=== PATIENT | male | born 1995 | race Two or more races ===

== ENCOUNTER 2024-10-06 22:00 | Inpatient (IN) | payer OTHER ==
[~2024-10-06] VITALS: Ht 177.8 cm; Wt 74.8 kg
[2024-10-06 22:29] LABS: ABG BASE EXCESS -11.6 mmol/L (-2.0-3.0); ABG HCO3 11.9 mmol/L (21.0-28.0); ABG PH 7.352 (7.350-7.450); ABG PO2 153.7 mmHg (83.0-108.0); ABG SITE LEFT BRACHIAL; ABG TOTAL HEMOGLOBIN 12.9 G/dL (13.5-17.5); AaDO2 98.9 mmHg; COHb 0.3 % (0.5-1.5); MetHb 0.2 % (0.0-1.5); O2Hb 98.3 % (94.0-98.0)
[2024-10-06] MEDS ORDERED: CEFEPIME HCL 1 G VIAL ONE (22:40)
[2024-10-06] MEDS: CEFEPIME HCL 1 G in IV DEXTROSE 5% 50 ML IV ONE (22:43)
[2024-10-06 22:46] LABS: BASOPHILS % (AUTO) 0.1 % (0.0-2.0); HEMATOCRIT 36.4 % (36.7-47.1); HEMOGLOBIN 11.9 g/dL (12.5-16.3); LYMPHOCYTES # (AUTO) 0.5 K/uL (0.8-4.8); LYMPHOCYTES % (AUTO) 3.2 % (20.5-51.5); MEAN CORPUSCULAR HEMOGLOBIN 29.7 uug (23.8-33.4); MEAN CORPUSCULAR HGB CONC 33 g/dL (32.5-36.3); MEAN CORPUSCULAR VOLUME 90.8 fL (73.0-96.2); MONOCYTES # (AUTO) 0.8 K/uL (0.1-1.30); MONOCYTES % (AUTO) 5.2 % (0.0-11.0); NEUTROPHILS # (AUTO) 13.8 K/uL (1.8-8.9); NEUTROPHILS % (AUTO) 91.5 % (38.5-71.5); PLATELET COUNT (AUTO) 282 K/uL (152-348); RED CELL DISTRIBUTION WIDTH 15.6 % (12.1-16.2); WHITE BLOOD COUNT (AUTO) 15.1 K/uL (3.6-10.2)
[2024-10-06 22:48] LABS: DIFFERENTIAL COMMENT 1
[2024-10-06 22:52] LABS: CALCIUM 8.7 mg/dL (8.5-10.1); CARBON DIOXIDE 19 mmol/L (21-32); CHLORIDE 97 mmol/L (98-107); CREATININE 1.4 mg/dL (0.6-1.3); GLUCOSE 109 mg/dL (74-106); SODIUM SERUM 134 mmol/L (136-145); UREA NITROGEN, BLOOD 31 mg/dL (7-18)
[2024-10-06 23:04] LABS: LACTIC ACID 6.5 mmol/L (0.4-2.0)
[2024-10-06 23:05] LABS: ALANINE AMINOTRANSFERASE 28 U/L (16-63); ALBUMIN 2.2 g/dL (3.4-5.0); ALKALINE PHOSPHATASE 102 U/L (50-136); ASPARTATE AMINOTRANSFERASE 44 U/L (15-37); BILIRUBIN,DIRECT 0.3 mg/dL (0.0-0.2); BILIRUBIN,TOTAL 0.8 mg/dL (0.2-1.0); NT-PRO BNP 152 pg/mL (0-125); TOTAL PROTEIN, SERUM 9.2 g/dL (6.4-8.2)
[2024-10-06] MEDS: IV NORMAL SALINE 1000 ML BAG IV ONE (23:50)
[2024-10-07] VITALS (9 sets, daily range): O2SAT 75–99
[2024-10-07] MEDS ORDERED: IV NORMAL SALINE 250 ML IV ONE (01:16)
[2024-10-07] MEDS ORDERED: IOHEXOL 350 100 ML INFUS..BTL ONE (01:16)
[2024-10-07] MEDS ORDERED: SWABABLE VALVE TRANSFER SET EA MC ONE (01:16)
[2024-10-07 02:46] LABS: *AMPHETAMINE, URINE NEGATIVE (NEGATIVE); *BARBITURATE, URINE NEGATIVE (NEGATIVE); *BENZODIAZEPINE, URINE NEGATIVE (NEGATIVE); *CANNABINOID, URINE NEGATIVE (NEGATIVE); *COCCAINE, URINE NEGATIVE (NEGATIVE); *OPIATE, URINE NEGATIVE (NEGATIVE); *PHENCYCLIDINE SCREEN,URINE NEGATIVE (NEGATIVE); FENTANYL, URINE NEGATIVE (NEGATIVE)
[2024-10-07] MEDS ORDERED: ONDANSETRON 4 MG/2 ML VIAL IV PRN (05:15)
[2024-10-07] MEDS ORDERED: REMEDY ESSENTIAL ZINC PASTE 113 GM TP PRN (05:15)
[2024-10-07] MEDS: IV NS 1000 ML 1,000 ML IV ONE (05:15)
[2024-10-07] MEDS ORDERED: MAGNESIUM HYDROXIDE 30 ML LIQUID UDC PO PRN (05:15)
[2024-10-07] MEDS: SODIUM BICARBONATE 8.4% 50 MEQ/50 ML DISP.SYRIN IV ONE (05:30)
[2024-10-07 05:39] LABS: ABG BASE EXCESS -6.1 mmol/L (-2.0-3.0); ABG PCO2 35.6 mmHg (35.0-48.0); ABG PH 7.345 (7.350-7.450); ABG PO2 135.1 mmHg (83.0-108.0); ABG SITE LEFT BRACHIAL; ABG TOTAL HEMOGLOBIN 9.4 G/dL (13.5-17.5); AaDO2 98.6 mmHg; COHb 0.3 % (0.5-1.5); MetHb 0.5 % (0.0-1.5); O2Hb 97.1 % (94.0-98.0)
[2024-10-07] MEDS ORDERED: SULFAMETH/TRIMETH 800/160 MG TABLET ONE (06:13)
[2024-10-07] MEDS: SULFAMETH/TRIMETH 800/160 MG TABLET PO ONE (06:14)
[2024-10-07] MEDS: HYDROCORTISONE SOD SUCCINATE 100 MG/2 ML VIAL IV SCH (09:15)
[2024-10-07] MEDS ORDERED: HYDROCORTISONE SOD SUCCINATE 100 MG/2 ML VIAL IV ONE ×3 (09:55→21:17)
[2024-10-07] MEDS ORDERED: SODIUM BICARBONATE 8.4% 50 MEQ/50 ML DISP.SYRIN IV ONE (09:55)
[2024-10-07] MEDS: VANCOMYCIN IV 1,000 MG in IV DEXTROSE 5% 250 ML IV SCH (10:34)
[2024-10-07] MEDS: CEFEPIME HCL 1 G in IV DEXTROSE 5% 50 ML IV SCH (14:00)
[2024-10-07] MEDS: METRONIDAZOLE 500 MG/NS 100ML 500 MG in PREMIXED 1 EACH IV SCH (14:21)
[2024-10-07] MEDS ORDERED: CEFEPIME HCL 1 G VIAL ONE ×2 (15:27→21:17)
[2024-10-07] MEDS: FLUCONAZOLE 400MG /NS 200ML IV 400 MG in PREMIXED 1 EACH IV SCH (16:00)
[2024-10-07 17:58] LABS: HIV-1 p24 ANTIGEN NON REACTIVE (NONREACTIVE); HIV-1/2 ANTIBODY REACTIVE (NONREACTIVE)
[2024-10-07] MEDS: ATOVAQUONE 750 MG/5 ML SUSPENSION UDC PO SCH (21:00)
[2024-10-08] VITALS (10 sets, daily range): O2SAT 94–98
[2024-10-08] MEDS: CEFEPIME HCL 1 G in IV DEXTROSE 5% 50 ML IV SCH (02:20)
[2024-10-08 08:06] LABS: BASOPHILS % (AUTO) 0.2 % (0.0-2.0); HEMATOCRIT 26.7 % (36.7-47.1); HEMOGLOBIN 9.1 g/dL (12.5-16.3); LYMPHOCYTES # (AUTO) 0.2 K/uL (0.8-4.8); LYMPHOCYTES % (AUTO) 2.3 % (20.5-51.5); MEAN CORPUSCULAR HEMOGLOBIN 30.3 uug (23.8-33.4); MEAN CORPUSCULAR HGB CONC 34 g/dL (32.5-36.3); MEAN CORPUSCULAR VOLUME 88.4 fL (73.0-96.2); MONOCYTES # (AUTO) 0.3 K/uL (0.1-1.30); MONOCYTES % (AUTO) 3.7 % (0.0-11.0); NEUTROPHILS # (AUTO) 8.6 K/uL (1.8-8.9); NEUTROPHILS % (AUTO) 93.8 % (38.5-71.5); PLATELET COUNT (AUTO) 227 K/uL (152-348); RED BLOOD CELL COUNT(AUTO) 3.02 MIL/uL (4.06-5.63); RED CELL DISTRIBUTION WIDTH 15.4 % (12.1-16.2); WHITE BLOOD COUNT (AUTO) 9.1 K/uL (3.6-10.2)
[2024-10-08 08:14] LABS: DIFFERENTIAL COMMENT 1
[2024-10-08 08:32] LABS: ALANINE AMINOTRANSFERASE 24 U/L (16-63); ALBUMIN 1.6 g/dL (3.4-5.0); ALKALINE PHOSPHATASE 74 U/L (50-136); ASPARTATE AMINOTRANSFERASE 25 U/L (15-37); BILIRUBIN,TOTAL 0.4 mg/dL (0.2-1.0); CALCIUM 7.4 mg/dL (8.5-10.1); CARBON DIOXIDE 24 mmol/L (21-32); CHLORIDE 106 mmol/L (98-107); CREATININE 0.7 mg/dL (0.6-1.3); GLUCOSE 113 mg/dL (74-106); LACTATE DEHYDROGENASE 609 U/L (85-227); MAGNESIUM 2.5 mg/dL (1.8-2.4); PHOSPHOROUS 3.8 mg/dL (2.5-4.9); POTASSIUM 4.4 mmol/L (3.5-5.1); SODIUM SERUM 137 mmol/L (136-145); TOTAL PROTEIN, SERUM 6.6 g/dL (6.4-8.2); UREA NITROGEN, BLOOD 19 mg/dL (7-18)
[2024-10-08] MEDS: METRONIDAZOLE 500 MG/NS 100ML 500 MG in PREMIXED 1 EACH IV SCH (09:07)
[2024-10-08] MEDS ORDERED: METRONIDAZOLE 500 MG/NS 100ML 500 MG in PREMIXED 1 EACH IV SCH (10:00)
[2024-10-08] MEDS ORDERED: HYDROCORTISONE SOD SUCCINATE 100 MG/2 ML VIAL IV ONE ×2 (10:27→17:45)
[2024-10-08] MEDS: ATOVAQUONE 750 MG/5 ML SUSPENSION UDC PO SCH (10:52)
[2024-10-08] MEDS: HYDROCORTISONE SOD SUCCINATE 100 MG/2 ML VIAL IV SCH (10:52)
[2024-10-08] MEDS: VANCOMYCIN IV 1,250 MG in IV DEXTROSE 5% 250 ML IV SCH (10:53)
[2024-10-08] MEDS ORDERED: ATOVAQUONE 750 MG/5 ML SUSPENSION UDC PO SCH (14:00)
[2024-10-08] MEDS ORDERED: VANCOMYCIN IV 1,000 MG in IV DEXTROSE 5% 250 ML IV SCH (14:00)
[2024-10-08] MEDS: IV NS 1000 ML 1,000 ML IV PRN (17:17)
[2024-10-08] MEDS ORDERED: SULFAMETH/TRIMETH 800/160 MG TABLET ONE (17:45)
[2024-10-08] MEDS: SULFAMETH/TRIMETH 800/160 MG TABLET PO SCH (17:48)
[2024-10-09] VITALS (14 sets, daily range): BP systolic 109–124; BP diastolic 68–75; TEMP 97.2–98; O2SAT 90–97
[2024-10-09] MEDS ORDERED: SULFAMETH/TRIMETH 800/160 MG TABLET ONE (00:20)
[2024-10-09] MEDS ORDERED: CEFEPIME HCL 1 G VIAL ONE (04:05)
[2024-10-09] MEDS ORDERED: HYDROCORTISONE SOD SUCCINATE 100 MG/2 ML VIAL IV ONE (04:05)
[2024-10-09 09:03] LABS: BASOPHILS % (AUTO) 0.1 % (0.0-2.0); HEMATOCRIT 28.6 % (36.7-47.1); HEMOGLOBIN 9.4 g/dL (12.5-16.3); LYMPHOCYTES # (AUTO) 0.3 K/uL (0.8-4.8); LYMPHOCYTES % (AUTO) 2.4 % (20.5-51.5); MEAN CORPUSCULAR HEMOGLOBIN 29.4 uug (23.8-33.4); MEAN CORPUSCULAR HGB CONC 33 g/dL (32.5-36.3); MEAN CORPUSCULAR VOLUME 89.3 fL (73.0-96.2); MONOCYTES # (AUTO) 0.6 K/uL (0.1-1.30); NEUTROPHILS # (AUTO) 10.4 K/uL (1.8-8.9); NEUTROPHILS % (AUTO) 92.5 % (38.5-71.5); PLATELET COUNT (AUTO) 278 K/uL (152-348); RED CELL DISTRIBUTION WIDTH 15.4 % (12.1-16.2); WHITE BLOOD COUNT (AUTO) 11.2 K/uL (3.6-10.2)
[2024-10-09 09:05] LABS: DIFFERENTIAL COMMENT 1
[2024-10-09 09:31] LABS: CALCIUM 7.6 mg/dL (8.5-10.1); CREATININE 0.8 mg/dL (0.6-1.3); MAGNESIUM 2.3 mg/dL (1.8-2.4); PHOSPHOROUS 4.1 mg/dL (2.5-4.9); POTASSIUM 2.9 mmol/L (3.5-5.1)
[2024-10-09] MEDS: POTASSIUM CHLORIDE 50 ML IV SCH (14:02)
[2024-10-09] MEDS: VANCOMYCIN IV 1,250 MG in IV DEXTROSE 5% 250 ML IV SCH (16:39)
[2024-10-09] MEDS: CEFEPIME HCL 1 G in IV DEXTROSE 5% 50 ML IV SCH (21:23)
[2024-10-10] VITALS (12 sets, daily range): BP systolic 112–127; BP diastolic 71–82; TEMP 97.7–98.4; O2SAT 92–98
[2024-10-10] MEDS ORDERED: SULFAMETH/TRIMETH 800/160 MG TABLET ONE (06:20)
[2024-10-10 07:36] LABS: BASOPHILS % (AUTO) 0.2 % (0.0-2.0); HEMATOCRIT 26.7 % (36.7-47.1); LYMPHOCYTES # (AUTO) 0.2 K/uL (0.8-4.8); LYMPHOCYTES % (AUTO) 1.8 % (20.5-51.5); MEAN CORPUSCULAR HGB CONC 34 g/dL (32.5-36.3); MEAN CORPUSCULAR VOLUME 88.9 fL (73.0-96.2); MONOCYTES # (AUTO) 0.9 K/uL (0.1-1.30); MONOCYTES % (AUTO) 7.7 % (0.0-11.0); NEUTROPHILS # (AUTO) 10.4 K/uL (1.8-8.9); NEUTROPHILS % (AUTO) 90.3 % (38.5-71.5); PLATELET COUNT (AUTO) 266 K/uL (152-348); RED CELL DISTRIBUTION WIDTH 15.5 % (12.1-16.2); WHITE BLOOD COUNT (AUTO) 11.5 K/uL (3.6-10.2)
[2024-10-10 07:49] LABS: DIFFERENTIAL COMMENT 1
[2024-10-10 09:02] LABS: ALBUMIN 1.9 g/dL (3.4-5.0); BILIRUBIN,DIRECT 0.1 mg/dL (0.0-0.2); BILIRUBIN,TOTAL 0.3 mg/dL (0.2-1.0); CALCIUM 7.6 mg/dL (8.5-10.1); CREATININE 0.8 mg/dL (0.6-1.3); MAGNESIUM 2.5 mg/dL (1.8-2.4); PHOSPHOROUS 3.6 mg/dL (2.5-4.9); POTASSIUM 3.2 mmol/L (3.5-5.1); TOTAL PROTEIN, SERUM 5.9 g/dL (6.4-8.2)
[2024-10-10] MEDS: POTASSIUM CHLORIDE 20 MEQ TAB.PRT.SR PO ONE (10:46)
[2024-10-11] VITALS (19 sets, daily range): BP systolic 113–124; BP diastolic 63–81; TEMP 97.6–98.7; O2SAT 93–97
[2024-10-11 07:29] LABS: BASOPHILS % (AUTO) 0.1 % (0.0-2.0); HEMATOCRIT 24.9 % (36.7-47.1); HEMOGLOBIN 8.5 g/dL (12.5-16.3); LYMPHOCYTES # (AUTO) 0.1 K/uL (0.8-4.8); LYMPHOCYTES % (AUTO) 1.4 % (20.5-51.5); MEAN CORPUSCULAR HEMOGLOBIN 30.4 uug (23.8-33.4); MEAN CORPUSCULAR HGB CONC 34 g/dL (32.5-36.3); MEAN CORPUSCULAR VOLUME 89.6 fL (73.0-96.2); MONOCYTES # (AUTO) 0.6 K/uL (0.1-1.30); MONOCYTES % (AUTO) 5.8 % (0.0-11.0); NEUTROPHILS # (AUTO) 9.9 K/uL (1.8-8.9); NEUTROPHILS % (AUTO) 92.7 % (38.5-71.5); PLATELET COUNT (AUTO) 253 K/uL (152-348); RED BLOOD CELL COUNT(AUTO) 2.78 MIL/uL (4.06-5.63); WHITE BLOOD COUNT (AUTO) 10.7 K/uL (3.6-10.2)
[2024-10-11 07:43] LABS: CALCIUM 7.2 mg/dL (8.5-10.1); CARBON DIOXIDE 17 mmol/L (21-32); CHLORIDE 111 mmol/L (98-107); CREATININE 0.7 mg/dL (0.6-1.3); GLUCOSE 109 mg/dL (74-106); MAGNESIUM 2.4 mg/dL (1.8-2.4); PHOSPHOROUS 3.6 mg/dL (2.5-4.9); POTASSIUM 3.1 mmol/L (3.5-5.1); SODIUM SERUM 141 mmol/L (136-145); UREA NITROGEN, BLOOD 17 mg/dL (7-18)
[2024-10-11 07:52] LABS: DIFFERENTIAL COMMENT 1
[2024-10-11] MEDS: POTASSIUM CHLORIDE 20 MEQ TAB.PRT.SR PO SCH (09:33)
[2024-10-11] MEDS: VANCOMYCIN IV 1,250 MG in IV DEXTROSE 5% 250 ML IV SCH (12:49)
[2024-10-11] MEDS: METRONIDAZOLE 500 MG TABLET PO SCH (13:52)
[2024-10-12] VITALS (29 sets, daily range): BP systolic 84–136; BP diastolic 48–88; TEMP 97.4–98.7; O2SAT 81–98
[2024-10-12] MEDS: IPRATROPIUM BROMIDE 0.5 MG/2.5 ML NEBU NEB PRN (03:16)
[2024-10-12] MEDS: ALBUTEROL SULFATE 2.5 MG/3 ML NEBU NEB PRN (03:16)
[2024-10-12 07:08] LABS: BASOPHILS % (AUTO) 0.1 % (0.0-2.0); HEMATOCRIT 25.4 % (36.7-47.1); HEMOGLOBIN 8.7 g/dL (12.5-16.3); LYMPHOCYTES # (AUTO) 0.2 K/uL (0.8-4.8); LYMPHOCYTES % (AUTO) 1.1 % (20.5-51.5); MEAN CORPUSCULAR HEMOGLOBIN 30.1 uug (23.8-33.4); MEAN CORPUSCULAR HGB CONC 34 g/dL (32.5-36.3); MEAN CORPUSCULAR VOLUME 88.4 fL (73.0-96.2); MONOCYTES # (AUTO) 0.9 K/uL (0.1-1.30); MONOCYTES % (AUTO) 6.2 % (0.0-11.0); NEUTROPHILS % (AUTO) 92.6 % (38.5-71.5); PLATELET COUNT (AUTO) 258 K/uL (152-348); RED BLOOD CELL COUNT(AUTO) 2.88 MIL/uL (4.06-5.63); RED CELL DISTRIBUTION WIDTH 15.9 % (12.1-16.2); WHITE BLOOD COUNT (AUTO) 14.1 K/uL (3.6-10.2)
[2024-10-12 07:25] LABS: CALCIUM 7.1 mg/dL (8.5-10.1); CARBON DIOXIDE 18 mmol/L (21-32); CHLORIDE 110 mmol/L (98-107); CREATININE 0.7 mg/dL (0.6-1.3); DIFFERENTIAL COMMENT 1; GLUCOSE 121 mg/dL (74-106); MAGNESIUM 2.1 mg/dL (1.8-2.4); PHOSPHOROUS 2.5 mg/dL (2.5-4.9); POTASSIUM 3.5 mmol/L (3.5-5.1); SODIUM SERUM 139 mmol/L (136-145); UREA NITROGEN, BLOOD 15 mg/dL (7-18)
[2024-10-12] MEDS: FLUCONAZOLE 200 MG TABLET PO SCH (09:00)
[2024-10-12] MEDS: FUROSEMIDE 40 MG/4 ML VIAL ONE (09:34)
[2024-10-12] MEDS: FUROSEMIDE 40 MG/4 ML VIAL IV ONE (09:58)
[2024-10-12] MEDS: PROPOFOL 100 ML IV PRN (10:54)
[2024-10-12] MEDS ORDERED: ETOMIDATE 20 MG/10 ML VIAL ONE (11:00)
[2024-10-12] MEDS ORDERED: CALCIUM CHLORIDE 1 GM/10 ML DISP.SYRIN IVP ONE (11:00)
[2024-10-12 12:11] LABS: ABG BASE EXCESS -11.4 mmol/L (-2.0-3.0); ABG HCO3 18.4 mmol/L (21.0-28.0); ABG PCO2 60.1 mmHg (35.0-48.0); ABG PH 7.104 (7.350-7.450); ABG PO2 140.5 mmHg (83.0-108.0); ABG SITE RIGHT RADIAL; ABG TOTAL HEMOGLOBIN 11.5 G/dL (13.5-17.5); AaDO2 97.8 mmHg; COHb 0.3 % (0.5-1.5); MetHb 0.5 % (0.0-1.5); VT, ABG 500 mL
[2024-10-12 12:53] LABS: ABG BASE EXCESS -11.7 mmol/L (-2.0-3.0); ABG HCO3 17.3 mmol/L (21.0-28.0); ABG PCO2 52.8 mmHg (35.0-48.0); ABG PH 7.134 (7.350-7.450); ABG SITE RIGHT RADIAL; ABG TOTAL HEMOGLOBIN 11.6 G/dL (13.5-17.5); AaDO2 95.3 mmHg; COHb 0.3 % (0.5-1.5); MetHb 0.5 % (0.0-1.5); VT, ABG 420 mL
[2024-10-12] MEDS ORDERED: ONDANSETRON 4 MG/2 ML VIAL IV PRN (16:00)
[2024-10-12] MEDS: ONDANSETRON 4 MG/2 ML VIAL IV PRN (16:54)
[2024-10-12] MEDS: predniSONE 20 MG TABLET PO SCH (17:10)
[2024-10-12 18:27] LABS: ABG BASE EXCESS -7.2 mmol/L (-2.0-3.0); ABG HCO3 19.3 mmol/L (21.0-28.0); ABG PCO2 42.9 mmHg (35.0-48.0); ABG PO2 94.4 mmHg (83.0-108.0); ABG SITE RIGHT RADIAL; ABG TOTAL HEMOGLOBIN 9.1 G/dL (13.5-17.5); AaDO2 96.3 mmHg; COHb 0.3 % (0.5-1.5); MetHb 0.6 % (0.0-1.5); O2Hb 94.9 % (94.0-98.0); VT, ABG 460 mL
[2024-10-12] MEDS: FENTANYL CITRATE/PF 1,000 MCG in IV NORMAL SALINE 80 ML IV PRN (18:53)
[2024-10-12] MEDS: MIDAZOLAM HCL 50 MG in IV NORMAL SALINE 40 ML IV PRN (18:54)
[2024-10-12 20:09] LABS: ADENOVIRUS Not Detected (Not Detected); CORONAVIRUS 229E Not Detected (Not Detected); CORONAVIRUS HKU1 Not Detected (Not Detected); CORONAVIRUS NL63 Not Detected (Not Detected); CORONAVIRUS OC43 Not Detected (Not Detected); NP BORDETELLA PERTUSIS Not Detected (Not Detected); NP CHLAMYDOPHILA PNEUMONIAE Not Detected (Not Detected); NP HUMAN METAPNEUMOVIRUS Not Detected (Not Detected); NP HUMAN RHINO/ENTERO VIRUS Not Detected (Not Detected); NP INFLUENZA A Not Detected (Not Detected); NP INFLUENZA A/H1 Not Detected (Not Detected); NP INFLUENZA A/H1-2009 Not Detected (Not Detected); NP INFLUENZA A/H3 Not Detected (Not Detected); NP INFLUENZA B Not Detected (Not Detected); NP MYCOPLASMA PNEUMONIAE Not Detected (Not Detected); NP PARAINFLUENZA 1 Not Detected (Not Detected); NP PARAINFLUENZA 2 Not Detected (Not Detected); NP PARAINFLUENZA 3 Not Detected (Not Detected); NP PARAINFLUENZA 4 Not Detected (Not Detected); NP RESPIRATORY SYNCYTIAL VIRUS Not Detected (Not Detected)
[2024-10-12] MEDS: ENOXAPARIN SODIUM 40 MG/0.4 ML DISP.SYRIN SQ SCH (21:11)
[2024-10-12] MEDS: NOREPINEPHRINE 8MG/NS 250ML 250 ML IV PRN (23:09)
[2024-10-13] VITALS (62 sets, daily range): BP systolic 74–129; BP diastolic 45–101; TEMP 98.1–101.5; O2SAT 87–99
[2024-10-13 05:24] LABS: BASOPHILS # (AUTO) 0.2 K/UL (0.0-0.2); BASOPHILS % (AUTO) 0.9 % (0.0-2.0); EOSINOPHILS # (AUTO) 0.1 K/uL (0.0-0.7); EOSINOPHILS % (AUTO) 0.8 % (0.0-7.0); HEMATOCRIT 24.5 % (36.7-47.1); LYMPHOCYTES # (AUTO) 0.1 K/uL (0.8-4.8); LYMPHOCYTES % (AUTO) 0.7 % (20.5-51.5); MEAN CORPUSCULAR HEMOGLOBIN 29.8 uug (23.8-33.4); MEAN CORPUSCULAR HGB CONC 33 g/dL (32.5-36.3); MEAN CORPUSCULAR VOLUME 91.3 fL (73.0-96.2); MONOCYTES # (AUTO) 0.5 K/uL (0.1-1.30); NEUTROPHILS # (AUTO) 15.5 K/uL (1.8-8.9); NEUTROPHILS % (AUTO) 94.6 % (38.5-71.5); PLATELET COUNT (AUTO) 213 K/uL (152-348); RED BLOOD CELL COUNT(AUTO) 2.69 MIL/uL (4.06-5.63); WHITE BLOOD COUNT (AUTO) 16.4 K/uL (3.6-10.2)
[2024-10-13 05:27] LABS: DIFFERENTIAL COMMENT 1
[2024-10-13 05:56] LABS: ALBUMIN 1.6 g/dL (3.4-5.0); BILIRUBIN,DIRECT 0.1 mg/dL (0.0-0.2); BILIRUBIN,TOTAL 0.5 mg/dL (0.2-1.0); CALCIUM 7.2 mg/dL (8.5-10.1); CREATININE 0.9 mg/dL (0.6-1.3); PHOSPHOROUS 2.5 mg/dL (2.5-4.9); POTASSIUM 3.8 mmol/L (3.5-5.1); TOTAL PROTEIN, SERUM 5.3 g/dL (6.4-8.2)
[2024-10-13 06:14] LABS: ABG BASE EXCESS -6.4 mmol/L (-2.0-3.0); ABG HCO3 19.4 mmol/L (21.0-28.0); ABG PH 7.304 (7.350-7.450); ABG PO2 104.4 mmHg (83.0-108.0); ABG SITE LEFT RADIAL; ABG TOTAL HEMOGLOBIN 8.7 G/dL (13.5-17.5); AaDO2 97.3 mmHg; COHb 0.3 % (0.5-1.5); MetHb 0.7 % (0.0-1.5); VT, ABG 460 mL
[2024-10-13] MEDS: PRECEDEX 400 MCG/100 ML BOTTLE 100 ML IV PRN (08:48)
[2024-10-13] MEDS ORDERED: MEROPENEM 500 MG in IV NORMAL SALINE 50 ML IV SCH (11:00)
[2024-10-13] MEDS ORDERED: VECURONIUM BROMIDE 10 MG VIAL IV PRN (13:45)
[2024-10-13] MEDS: MEROPENEM 0.5 G in IV NORMAL SALINE 50 ML IV SCH (14:00)
[2024-10-13] MEDS: ACETAMINOPHEN 325 MG TABLET PO PRN (15:30)
[2024-10-13 15:37] LABS: ABG BASE EXCESS -2.4 mmol/L (-2.0-3.0); ABG HCO3 24.1 mmol/L (21.0-28.0); ABG PCO2 50.6 mmHg (35.0-48.0); ABG PH 7.296 (7.350-7.450); ABG PO2 87.8 mmHg (83.0-108.0); ABG SITE RIGHT RADIAL; ABG TOTAL HEMOGLOBIN 8.5 G/dL (13.5-17.5); AaDO2 95.7 mmHg; COHb 0.1 % (0.5-1.5); MetHb 0.5 % (0.0-1.5); VT, ABG 460 mL
[2024-10-13] MEDS: VECURONIUM BROMIDE 50 MG in IV NORMAL SALINE 50 ML IV PRN (15:59)
[2024-10-13] MEDS: VORICONAZOLE 200 MG TABLET PO SCH (17:08)
[2024-10-14] VITALS (54 sets, daily range): BP systolic 76–142; BP diastolic 44–86; TEMP 97.1–100.8; O2SAT 90–100
[2024-10-14 05:10] LABS: BASOPHILS % (AUTO) 0.2 % (0.0-2.0); HEMOGLOBIN 8.4 g/dL (12.5-16.3); LYMPHOCYTES # (AUTO) 0.2 K/uL (0.8-4.8); MEAN CORPUSCULAR HEMOGLOBIN 29.9 uug (23.8-33.4); MEAN CORPUSCULAR HGB CONC 32 g/dL (32.5-36.3); MEAN CORPUSCULAR VOLUME 92.5 fL (73.0-96.2); MONOCYTES # (AUTO) 0.4 K/uL (0.1-1.30); MONOCYTES % (AUTO) 2.3 % (0.0-11.0); NEUTROPHILS # (AUTO) 15.2 K/uL (1.8-8.9); NEUTROPHILS % (AUTO) 96.5 % (38.5-71.5); PLATELET COUNT (AUTO) 199 K/uL (152-348); RED BLOOD CELL COUNT(AUTO) 2.81 MIL/uL (4.06-5.63); RED CELL DISTRIBUTION WIDTH 18.6 % (12.1-16.2); WHITE BLOOD COUNT (AUTO) 15.7 K/uL (3.6-10.2)
[2024-10-14 05:17] LABS: ABG BASE EXCESS -6.2 mmol/L (-2.0-3.0); ABG HCO3 20.5 mmol/L (21.0-28.0); ABG PCO2 46.3 mmHg (35.0-48.0); ABG PH 7.264 (7.350-7.450); ABG PO2 206.3 mmHg (83.0-108.0); ABG SITE LEFT RADIAL; ABG TOTAL HEMOGLOBIN 9.2 G/dL (13.5-17.5); AaDO2 99.2 mmHg; COHb 0.3 % (0.5-1.5); MetHb 0.4 % (0.0-1.5); O2Hb 98.5 % (94.0-98.0); VT, ABG 460 mL
[2024-10-14 05:20] LABS: DIFFERENTIAL COMMENT 1
[2024-10-14 05:27] LABS: CALCIUM 7.7 mg/dL (8.5-10.1); CREATININE 0.9 mg/dL (0.6-1.3); MAGNESIUM 2.2 mg/dL (1.8-2.4); POTASSIUM 4.7 mmol/L (3.5-5.1)
[2024-10-14] MEDS ORDERED: MINERAL OIL/PETROLAT OPHT OINT 3.5 GM TUBE EACHEYE SCH (09:15)
[2024-10-14] MEDS: IV LACTATED RINGERS SOLUTION 1,000 ML IV SCH (14:52)
[2024-10-14] MEDS: TRIMETHOPRI IV SCH (19:26)
[2024-10-14] MEDS: DEXTROSE IV SCH (19:26)
[2024-10-14] MEDS: SULFAMETHOXAZOL IV SCH (19:26)
[2024-10-15] VITALS (31 sets, daily range): BP systolic 84–111; BP diastolic 43–70; TEMP 97–98.2; O2SAT 90–95
[2024-10-15 05:49] LABS: NUCLEATED RED BLOOD CELLS 0.1 /100WBC
[2024-10-15 05:54] LABS: BASOPHILS % (AUTO) 0.2 % (0.0-2.0); HEMATOCRIT 20.5 % (36.7-47.1); HEMOGLOBIN 6.9 g/dL (12.5-16.3); LYMPHOCYTES # (AUTO) 0.1 K/uL (0.8-4.8); LYMPHOCYTES % (AUTO) 1.2 % (20.5-51.5); MEAN CORPUSCULAR HEMOGLOBIN 30.7 uug (23.8-33.4); MEAN CORPUSCULAR HGB CONC 34 g/dL (32.5-36.3); MEAN CORPUSCULAR VOLUME 91.4 fL (73.0-96.2); MONOCYTES % (AUTO) 2.4 % (0.0-11.0); NEUTROPHILS # (AUTO) 8.7 K/uL (1.8-8.9); NEUTROPHILS % (AUTO) 96.2 % (38.5-71.5); PLATELET COUNT (AUTO) 175 K/uL (152-348); RED BLOOD CELL COUNT(AUTO) 2.24 MIL/uL (4.06-5.63); RED CELL DISTRIBUTION WIDTH 18.8 % (12.1-16.2); WHITE BLOOD COUNT (AUTO) 9.1 K/uL (3.6-10.2)
[2024-10-15 05:55] LABS: DIFFERENTIAL COMMENT 1; MONOCYTES # (AUTO) 0.2 K/uL (0.1-1.30)
[2024-10-15 06:01] LABS: CALCIUM 7.5 mg/dL (8.5-10.1); CREATININE 0.8 mg/dL (0.6-1.3); MAGNESIUM 2.1 mg/dL (1.8-2.4); PHOSPHOROUS 1.8 mg/dL (2.5-4.9); POTASSIUM 4.2 mmol/L (3.5-5.1)
[2024-10-15 07:35] LABS: LYMPHOCYTES % (MANUAL) 2 % (20-40); MONOCYTES % (MANUAL) 2 % (2-10); NEUTROPHILS % (MANUAL) 96 % (42-75); PLATELET ESTIMATE ADEQUATE
[2024-10-15 07:36] LABS: LYMPHOCYTES % (MANUAL) 2 % (20-40); MONOCYTES % (MANUAL) 2 % (2-10); NEUTROPHILS % (MANUAL) 96 % (42-75); PLATELET ESTIMATE ADEQUATE
[2024-10-15 09:47] LABS: ABG BASE EXCESS -4.7 mmol/L (-2.0-3.0); ABG HCO3 21.7 mmol/L (21.0-28.0); ABG PCO2 46.6 mmHg (35.0-48.0); ABG PH 7.286 (7.350-7.450); ABG PO2 66.7 mmHg (83.0-108.0); ABG SITE RIGHT RADIAL; ABG TOTAL HEMOGLOBIN 8.9 G/dL (13.5-17.5); AaDO2 90.9 mmHg; COHb 0.3 % (0.5-1.5); MetHb 0.4 % (0.0-1.5); O2Hb 89.8 % (94.0-98.0); VT, ABG 460 mL
[2024-10-15] MEDS: SODIUM PHOSPHATE MM 15 MMOL in IV NORMAL SALINE 250 ML IV ONE (10:45)
[2024-10-15] MEDS ORDERED: VORICONAZOLE 200 MG TABLET PO SCH (17:00)
[2024-10-15] MEDS ORDERED: JEVITY 1.2 1000 ML LIQUID GT PRN (17:15)
[2024-10-15] MEDS: DEXTROSE 5% IV SCH (21:40)
[2024-10-15] MEDS: VORICONAZOLE IV SCH (21:40)
[2024-10-15] MEDS: JEVITY 1.2 1000 ML LIQUID GT PRN (21:41)
[2024-10-16] VITALS (48 sets, daily range): BP systolic 87–132; BP diastolic 46–84; TEMP 97.4–98.8; O2SAT 85–98
[2024-10-16 05:14] LABS: BASOPHILS % (AUTO) 0.2 % (0.0-2.0); HEMATOCRIT 24.1 % (36.7-47.1); HEMOGLOBIN 7.9 g/dL (12.5-16.3); LYMPHOCYTES # (AUTO) 0.1 K/uL (0.8-4.8); LYMPHOCYTES % (AUTO) 0.5 % (20.5-51.5); MEAN CORPUSCULAR HEMOGLOBIN 29.1 uug (23.8-33.4); MEAN CORPUSCULAR HGB CONC 33 g/dL (32.5-36.3); MEAN CORPUSCULAR VOLUME 89.2 fL (73.0-96.2); MONOCYTES # (AUTO) 0.7 K/uL (0.1-1.30); MONOCYTES % (AUTO) 5.6 % (0.0-11.0); NEUTROPHILS # (AUTO) 11.6 K/uL (1.8-8.9); NEUTROPHILS % (AUTO) 93.7 % (38.5-71.5); PLATELET COUNT (AUTO) 159 K/uL (152-348); RED BLOOD CELL COUNT(AUTO) 2.71 MIL/uL (4.06-5.63); WHITE BLOOD COUNT (AUTO) 12.3 K/uL (3.6-10.2)
[2024-10-16 05:20] LABS: DIFFERENTIAL COMMENT 1
[2024-10-16 05:37] LABS: CALCIUM 7.4 mg/dL (8.5-10.1); CREATININE 0.8 mg/dL (0.6-1.3); POTASSIUM 3.9 mmol/L (3.5-5.1)
[2024-10-16 05:41] LABS: BILIRUBIN,DIRECT 0.1 mg/dL (0.0-0.2); BILIRUBIN,TOTAL 0.3 mg/dL (0.2-1.0); MAGNESIUM 2.2 mg/dL (1.8-2.4); TOTAL PROTEIN, SERUM 5.1 g/dL (6.4-8.2)
[2024-10-16 05:51] LABS: ALBUMIN 1.4 g/dL (3.4-5.0)
[2024-10-16 05:58] LABS: ABG BASE EXCESS -4.6 mmol/L (-2.0-3.0); ABG PCO2 40.7 mmHg (35.0-48.0); ABG PO2 95.5 mmHg (83.0-108.0); ABG SITE LEFT RADIAL; ABG TOTAL HEMOGLOBIN 8.7 G/dL (13.5-17.5); AaDO2 96.9 mmHg; COHb 0.3 % (0.5-1.5); MetHb 0.6 % (0.0-1.5); O2Hb 95.6 % (94.0-98.0); VT, ABG 460 mL
[2024-10-16] MEDS: DEXTROSE 5% IV SCH (10:35)
[2024-10-16] MEDS: VORICONAZOLE IV SCH (10:35)
[2024-10-16] MEDS: POTASSIUM PHOSPHATE MM 15 MMOL in IV NORMAL SALINE 250 ML IV ONE (10:36)
[2024-10-16] MEDS: PROPOFOL 100 ML IV PRN ×2 (14:15→17:01)
[2024-10-16 19:06] LABS: *HIV-1 log10 RNA 6.061 (.)
[2024-10-17] VITALS (80 sets, daily range): BP systolic 83–178; BP diastolic 48–131; TEMP 97.6–98.4; O2SAT 82–99
[2024-10-17 05:02] LABS: BASOPHILS % (AUTO) 0.1 % (0.0-2.0); HEMATOCRIT 27.3 % (36.7-47.1); HEMOGLOBIN 9.1 g/dL (12.5-16.3); LYMPHOCYTES # (AUTO) 0.1 K/uL (0.8-4.8); LYMPHOCYTES % (AUTO) 1.3 % (20.5-51.5); MEAN CORPUSCULAR HEMOGLOBIN 30.1 uug (23.8-33.4); MEAN CORPUSCULAR HGB CONC 34 g/dL (32.5-36.3); MEAN CORPUSCULAR VOLUME 89.9 fL (73.0-96.2); MONOCYTES # (AUTO) 0.4 K/uL (0.1-1.30); MONOCYTES % (AUTO) 4.1 % (0.0-11.0); NEUTROPHILS # (AUTO) 9.7 K/uL (1.8-8.9); NEUTROPHILS % (AUTO) 94.5 % (38.5-71.5); PLATELET COUNT (AUTO) 137 K/uL (152-348); RED BLOOD CELL COUNT(AUTO) 3.04 MIL/uL (4.06-5.63); RED CELL DISTRIBUTION WIDTH 19.3 % (12.1-16.2); WHITE BLOOD COUNT (AUTO) 10.2 K/uL (3.6-10.2)
[2024-10-17 05:13] LABS: DIFFERENTIAL COMMENT 1
[2024-10-17 05:17] LABS: CALCIUM 7.7 mg/dL (8.5-10.1); CREATININE 0.8 mg/dL (0.6-1.3); MAGNESIUM 2.2 mg/dL (1.8-2.4); PHOSPHOROUS 2.9 mg/dL (2.5-4.9); POTASSIUM 4.8 mmol/L (3.5-5.1)
[2024-10-17 07:45] LABS: ABG BASE EXCESS -2.5 mmol/L (-2.0-3.0); ABG HCO3 24.5 mmol/L (21.0-28.0); ABG PH 7.282 (7.350-7.450); ABG PO2 178.7 mmHg (83.0-108.0); ABG SITE LEFT RADIAL; COHb 0.3 % (0.5-1.5); MetHb 0.6 % (0.0-1.5); O2Hb 97.8 % (94.0-98.0); VT, ABG 460 mL
[2024-10-18] VITALS (93 sets, daily range): BP systolic 86–129; BP diastolic 41–85; TEMP 97.6–99.9; O2SAT 91–98
[2024-10-18 05:12] LABS: HEMATOCRIT 25.6 % (36.7-47.1); HEMOGLOBIN 8.5 g/dL (12.5-16.3); LYMPHOCYTES # (AUTO) 0.1 K/uL (0.8-4.8); LYMPHOCYTES % (AUTO) 1.6 % (20.5-51.5); MEAN CORPUSCULAR HGB CONC 33 g/dL (32.5-36.3); MEAN CORPUSCULAR VOLUME 90.7 fL (73.0-96.2); MONOCYTES # (AUTO) 0.4 K/uL (0.1-1.30); MONOCYTES % (AUTO) 4.5 % (0.0-11.0); NEUTROPHILS # (AUTO) 8.9 K/uL (1.8-8.9); NEUTROPHILS % (AUTO) 93.9 % (38.5-71.5); PLATELET COUNT (AUTO) 113 K/uL (152-348); RED BLOOD CELL COUNT(AUTO) 2.83 MIL/uL (4.06-5.63); WHITE BLOOD COUNT (AUTO) 9.5 K/uL (3.6-10.2)
[2024-10-18 05:25] LABS: DIFFERENTIAL COMMENT 1
[2024-10-18 05:26] LABS: CALCIUM 7.5 mg/dL (8.5-10.1); CARBON DIOXIDE 29 mmol/L (21-32); CHLORIDE 114 mmol/L (98-107); CREATININE 0.7 mg/dL (0.6-1.3); GLUCOSE 136 mg/dL (74-106); POTASSIUM 5.5 mmol/L (3.5-5.1); SODIUM SERUM 148 mmol/L (136-145); UREA NITROGEN, BLOOD 14 mg/dL (7-18)
[2024-10-18 06:22] LABS: ABG BASE EXCESS -2.9 mmol/L (-2.0-3.0); ABG HCO3 25.2 mmol/L (21.0-28.0); ABG PCO2 64.1 mmHg (35.0-48.0); ABG PH 7.213 (7.350-7.450); ABG PO2 76.1 mmHg (83.0-108.0); ABG SITE LEFT RADIAL; ABG TOTAL HEMOGLOBIN 8.7 G/dL (13.5-17.5); COHb 0.4 % (0.5-1.5); MetHb 0.7 % (0.0-1.5); O2Hb 91.3 % (94.0-98.0); VT, ABG 460 mL
[2024-10-18] MEDS: PROPOFOL 100 ML IV PRN (13:12)
[2024-10-18] MEDS: SODIUM ZIRCONIUM CYCLOSILICATE 10 GM POWD.PACK PO ONE (18:36)
[2024-10-19] VITALS (81 sets, daily range): BP systolic 101–127; BP diastolic 52–77; TEMP 97.5–98.8; O2SAT 96–98
[2024-10-19 05:09] LABS: HEMATOCRIT 25.3 % (36.7-47.1); HEMOGLOBIN 8.1 g/dL (12.5-16.3); LYMPHOCYTES # (AUTO) 0.2 K/uL (0.8-4.8); LYMPHOCYTES % (AUTO) 1.5 % (20.5-51.5); MEAN CORPUSCULAR HEMOGLOBIN 29.4 uug (23.8-33.4); MEAN CORPUSCULAR HGB CONC 32 g/dL (32.5-36.3); MEAN CORPUSCULAR VOLUME 91.4 fL (73.0-96.2); MONOCYTES # (AUTO) 0.7 K/uL (0.1-1.30); NEUTROPHILS # (AUTO) 10.6 K/uL (1.8-8.9); NEUTROPHILS % (AUTO) 92.5 % (38.5-71.5); PLATELET COUNT (AUTO) 92 K/uL (152-348); RED BLOOD CELL COUNT(AUTO) 2.77 MIL/uL (4.06-5.63); RED CELL DISTRIBUTION WIDTH 19.7 % (12.1-16.2); WHITE BLOOD COUNT (AUTO) 11.5 K/uL (3.6-10.2)
[2024-10-19 05:20] LABS: DIFFERENTIAL COMMENT 1
[2024-10-19 05:32] LABS: CALCIUM 7.4 mg/dL (8.5-10.1); CREATININE 0.8 mg/dL (0.6-1.3); POTASSIUM 5.6 mmol/L (3.5-5.1)
[2024-10-19 05:38] LABS: MAGNESIUM 1.9 mg/dL (1.8-2.4); PHOSPHOROUS 2.6 mg/dL (2.5-4.9)
[2024-10-19 06:09] LABS: ABG BASE EXCESS -5.5 mmol/L (-2.0-3.0); ABG HCO3 21.7 mmol/L (21.0-28.0); ABG PCO2 51.9 mmHg (35.0-48.0); ABG PO2 122.2 mmHg (83.0-108.0); ABG SITE RIGHT RADIAL; ABG TOTAL HEMOGLOBIN 8.6 G/dL (13.5-17.5); AaDO2 97.8 mmHg; COHb 0.2 % (0.5-1.5); MetHb 0.8 % (0.0-1.5); O2Hb 96.9 % (94.0-98.0); VT, ABG 460 mL
[2024-10-19] MEDS: predniSONE 20 MG TABLET PO SCH (09:11)
[2024-10-19] MEDS: JEVITY 1.2 1000 ML LIQUID GT PRN (09:58)
[2024-10-19] MEDS: SODIUM ZIRCONIUM CYCLOSILICATE 10 GM POWD.PACK ONE (15:37)
[2024-10-19] MEDS: SODIUM ZIRCONIUM CYCLOSILICATE 10 GM POWD.PACK PO ONE (15:38)
[2024-10-20] VITALS (89 sets, daily range): BP systolic 92–115; BP diastolic 50–81; TEMP 97.1–98.6; O2SAT 96–100
[2024-10-20 05:24] LABS: BASOPHILS % (AUTO) 0.3 % (0.0-2.0); EOSINOPHILS # (AUTO) 0.1 K/uL (0.0-0.7); EOSINOPHILS % (AUTO) 0.6 % (0.0-7.0); HEMATOCRIT 23.7 % (36.7-47.1); HEMOGLOBIN 7.8 g/dL (12.5-16.3); LYMPHOCYTES # (AUTO) 0.2 K/uL (0.8-4.8); LYMPHOCYTES % (AUTO) 1.7 % (20.5-51.5); MEAN CORPUSCULAR HEMOGLOBIN 30.1 uug (23.8-33.4); MEAN CORPUSCULAR HGB CONC 33 g/dL (32.5-36.3); MEAN CORPUSCULAR VOLUME 91.1 fL (73.0-96.2); MONOCYTES # (AUTO) 0.4 K/uL (0.1-1.30); MONOCYTES % (AUTO) 4.5 % (0.0-11.0); NEUTROPHILS # (AUTO) 8.6 K/uL (1.8-8.9); NEUTROPHILS % (AUTO) 92.9 % (38.5-71.5); PLATELET COUNT (AUTO) 72 K/uL (152-348); RED CELL DISTRIBUTION WIDTH 19.4 % (12.1-16.2); WHITE BLOOD COUNT (AUTO) 9.2 K/uL (3.6-10.2)
[2024-10-20 05:31] LABS: CALCIUM 7.6 mg/dL (8.5-10.1); CARBON DIOXIDE 32 mmol/L (21-32); CHLORIDE 108 mmol/L (98-107); CREATININE 0.7 mg/dL (0.6-1.3); GLUCOSE 107 mg/dL (74-106); POTASSIUM 5.4 mmol/L (3.5-5.1); SODIUM SERUM 141 mmol/L (136-145); UREA NITROGEN, BLOOD 14 mg/dL (7-18)
[2024-10-20 05:35] LABS: PHOSPHOROUS 2.4 mg/dL (2.5-4.9)
[2024-10-20 05:38] LABS: DIFFERENTIAL COMMENT 1
[2024-10-20 05:56] LABS: ABG BASE EXCESS 0.6 mmol/L (-2.0-3.0); ABG HCO3 27.5 mmol/L (21.0-28.0); ABG PCO2 57.8 mmHg (35.0-48.0); ABG PH 7.296 (7.350-7.450); ABG PO2 129.4 mmHg (83.0-108.0); ABG SITE LEFT RADIAL; ABG TOTAL HEMOGLOBIN 8.4 G/dL (13.5-17.5); AaDO2 98.2 mmHg; COHb 0.2 % (0.5-1.5); MetHb 0.7 % (0.0-1.5); O2Hb 97.2 % (94.0-98.0); VT, ABG 460 mL
[2024-10-20 06:27] LABS: EOSINOPHILS % (MANUAL) 1 % (0-8); LYMPHOCYTES % (MANUAL) 3 % (20-40); MONOCYTES % (MANUAL) 10 % (2-10); MYELOCYTES % 2 % (0-0); NEUTROPHILS % (MANUAL) 84 % (42-75)
[2024-10-20 06:28] LABS: ANISOCYTOSIS 1+; OVALOCYTES 1+; PLATELET ESTIMATE DECREASED
[2024-10-20] MEDS: JEVITY 1.2 1000 ML LIQUID GT PRN (08:34)
[2024-10-20 09:09] LABS: *BASOS 0 % (Not Estab.); *COMMENTS Note: (.); *EOS 0 % (Not Estab.); *HCT 25.1 % (37.5-51.0); *HGB 7.8 g/dL (13.0-17.7); *LYMPHOCYTES 4 % (Not Estab.); *LYMPHOCYTES ABSOLUTE 0.4 x10E3/uL (0.7-3.1); *MCH 29.3 pg (26.6-33.0); *MCHC 31.1 g/dL (31.5-35.7); *MCV 94 fL (79-97); *MONOCYTES 3 % (Not Estab.); *MONOCYTES ABSOLUTE 0.3 x10E3/uL (0.1-0.9); *NEUTROPHILS 93 % (Not Estab.); *NEUTROPHILS ABSOLUTE 10.4 x10E3/uL (1.4-7.0); *NRBC 6 % (0 - 0); *PLT 108 x10E3/uL (150-450); *RBC 2.66 x10E6/uL (4.14-5.80); *RDW 18.1 % (11.6-15.4); *WBC 11.2 x10E3/uL (3.4-10.8)
[2024-10-20 11:08] LABS: *HELPER T-LYMPH MARKR(CD4)ABSO 9 /uL (359-1519); *HELPER T-LYNPH MARKER CD4)% 2.2 % (30.8-58.5)
[2024-10-20] MEDS: SODIUM ZIRCONIUM CYCLOSILICATE 10 GM POWD.PACK PO ONE (17:51)
[2024-10-20] MEDS: NEUTRA PHOS PACKET GT ONE (18:02)
[2024-10-20] MEDS: METOCLOPRAMIDE HCL 10 MG/2 ML VIAL IV SCH (21:30)
[2024-10-20] MEDS ORDERED: METOCLOPRAMIDE HCL 10 MG/2 ML VIAL IV SCH (22:00)
[2024-10-21] VITALS (94 sets, daily range): BP systolic 97–120; BP diastolic 53–82; TEMP 97.1–99.2; O2SAT 93–100
[2024-10-21 05:00] LABS: BASOPHILS % (AUTO) 0.6 % (0.0-2.0); EOSINOPHILS % (AUTO) 0.3 % (0.0-7.0); HEMATOCRIT 23.8 % (36.7-47.1); HEMOGLOBIN 7.9 g/dL (12.5-16.3); LYMPHOCYTES # (AUTO) 0.1 K/uL (0.8-4.8); LYMPHOCYTES % (AUTO) 1.5 % (20.5-51.5); MEAN CORPUSCULAR HEMOGLOBIN 30.1 uug (23.8-33.4); MEAN CORPUSCULAR HGB CONC 33 g/dL (32.5-36.3); MEAN CORPUSCULAR VOLUME 90.6 fL (73.0-96.2); MONOCYTES # (AUTO) 0.4 K/uL (0.1-1.30); MONOCYTES % (AUTO) 4.9 % (0.0-11.0); NEUTROPHILS # (AUTO) 7.7 K/uL (1.8-8.9); NEUTROPHILS % (AUTO) 92.7 % (38.5-71.5); PLATELET COUNT (AUTO) 64 K/uL (152-348); RED BLOOD CELL COUNT(AUTO) 2.63 MIL/uL (4.06-5.63); RED CELL DISTRIBUTION WIDTH 19.3 % (12.1-16.2); WHITE BLOOD COUNT (AUTO) 8.3 K/uL (3.6-10.2)
[2024-10-21 05:11] LABS: CALCIUM 7.7 mg/dL (8.5-10.1); CARBON DIOXIDE 32 mmol/L (21-32); CHLORIDE 105 mmol/L (98-107); CREATININE 0.7 mg/dL (0.6-1.3); GLUCOSE 85 mg/dL (74-106); POTASSIUM 6.2 mmol/L (3.5-5.1); SODIUM SERUM 140 mmol/L (136-145); UREA NITROGEN, BLOOD 13 mg/dL (7-18)
[2024-10-21 05:14] LABS: DIFFERENTIAL COMMENT 1; PHOSPHOROUS 2.9 mg/dL (2.5-4.9)
[2024-10-21 05:46] LABS: ABG BASE EXCESS 0.8 mmol/L (-2.0-3.0); ABG HCO3 27.6 mmol/L (21.0-28.0); ABG PCO2 56.3 mmHg (35.0-48.0); ABG PH 7.308 (7.350-7.450); ABG PO2 193.4 mmHg (83.0-108.0); ABG SITE LEFT RADIAL; AaDO2 99.2 mmHg; COHb 0.3 % (0.5-1.5); MetHb 0.8 % (0.0-1.5); O2Hb 97.9 % (94.0-98.0); VT, ABG 460 mL
[2024-10-21 07:00] LABS: LYMPHOCYTES % (MANUAL) 0 % (20-40); NEUTROPHILS % (MANUAL) 0 % (42-75)
[2024-10-21] MEDS: MIRALAX 17 GM POWD.PACK NG SCH (09:12)
[2024-10-21 12:56] LABS: *CHLORIDE RNDM,URINE 57 mmol/L (100-250); *POTASSIUM RNDM,URINE 5 mmol/L (25-125); *SODIUM RNDM,URINE 61 mmol/L (40-220)
[2024-10-21] MEDS: FUROSEMIDE 40 MG/4 ML VIAL IV ONE (12:58)
[2024-10-21] MEDS: SODIUM ZIRCONIUM CYCLOSILICATE 10 GM POWD.PACK PO ONE (12:58)
[2024-10-21] MEDS: LACTULOSE 20 G/30 ML LIQUID UDC NG ONE (16:33)
[2024-10-21] MEDS: DOCUSATE SODIUM 100 MG/10 ML LIQUID UDC GT SCH (20:37)
[2024-10-22] VITALS (95 sets, daily range): BP systolic 100–128; BP diastolic 52–82; TEMP 97.9–98.8; O2SAT 87–99
[2024-10-22 05:24] LABS: BASOPHILS % (AUTO) 0.3 % (0.0-2.0); EOSINOPHILS % (AUTO) 0.2 % (0.0-7.0); HEMATOCRIT 21.8 % (36.7-47.1); LYMPHOCYTES # (AUTO) 0.1 K/uL (0.8-4.8); LYMPHOCYTES % (AUTO) 1.2 % (20.5-51.5); MEAN CORPUSCULAR HGB CONC 34 g/dL (32.5-36.3); MEAN CORPUSCULAR VOLUME 88.6 fL (73.0-96.2); MONOCYTES # (AUTO) 0.3 K/uL (0.1-1.30); MONOCYTES % (AUTO) 4.5 % (0.0-11.0); NEUTROPHILS # (AUTO) 5.4 K/uL (1.8-8.9); NEUTROPHILS % (AUTO) 93.8 % (38.5-71.5); PLATELET COUNT (AUTO) 56 K/uL (152-348); RED CELL DISTRIBUTION WIDTH 18.9 % (12.1-16.2); WHITE BLOOD COUNT (AUTO) 5.7 K/uL (3.6-10.2)
[2024-10-22 05:41] LABS: DIFFERENTIAL COMMENT 1; HEMOGLOBIN 7.4 g/dL (12.5-16.3); RED BLOOD CELL COUNT(AUTO) 2.46 MIL/uL (4.06-5.63)
[2024-10-22 05:44] LABS: MAGNESIUM 1.8 mg/dL (1.8-2.4); PHOSPHOROUS 2.8 mg/dL (2.5-4.9)
[2024-10-22 05:45] LABS: CALCIUM 7.9 mg/dL (8.5-10.1); CARBON DIOXIDE 33 mmol/L (21-32); CHLORIDE 100 mmol/L (98-107); CREATININE 0.7 mg/dL (0.6-1.3); GLUCOSE 85 mg/dL (74-106); POTASSIUM 5.9 mmol/L (3.5-5.1); SODIUM SERUM 137 mmol/L (136-145); UREA NITROGEN, BLOOD 16 mg/dL (7-18)
[2024-10-22 06:09] LABS: ABG BASE EXCESS 2.8 mmol/L (-2.0-3.0); ABG HCO3 28.6 mmol/L (21.0-28.0); ABG PCO2 51.1 mmHg (35.0-48.0); ABG PH 7.366 (7.350-7.450); ABG PO2 73.5 mmHg (83.0-108.0); ABG SITE LEFT RADIAL; ABG TOTAL HEMOGLOBIN 7.7 G/dL (13.5-17.5); AaDO2 94.1 mmHg; MetHb 0.7 % (0.0-1.5); O2Hb 91.1 % (94.0-98.0); VT, ABG 460 mL
[2024-10-22 08:11] LABS: ANISOCYTOSIS 2+; LYMPHOCYTES % (MANUAL) 1 % (20-40); MONOCYTES % (MANUAL) 5 % (2-10); NEUTROPHILS % (MANUAL) 94 % (42-75); PLATELET ESTIMATE DECREASED
[2024-10-22] MEDS: LACTULOSE 20 G/30 ML LIQUID UDC NG SCH (11:27)
[2024-10-22] MEDS: ARGININE/GLUTAMINE/CALCIUM BMB 1 EACH POWD.PACK GT SCH (12:45)
[2024-10-22] MEDS: SODIUM ZIRCONIUM CYCLOSILICATE 10 GM POWD.PACK PO ONE ×2 (15:45→17:58)
[2024-10-22] MEDS: NEPRO 1000 ML GT PRN (17:13)
[2024-10-23] VITALS (74 sets, daily range): BP systolic 101–130; BP diastolic 56–86; TEMP 98–99; O2SAT 91–100
[2024-10-23 05:17] LABS: BASOPHILS % (AUTO) 0.2 % (0.0-2.0); EOSINOPHILS # (AUTO) 0.1 K/uL (0.0-0.7); EOSINOPHILS % (AUTO) 0.9 % (0.0-7.0); HEMATOCRIT 22.8 % (36.7-47.1); HEMOGLOBIN 7.7 g/dL (12.5-16.3); LYMPHOCYTES # (AUTO) 0.1 K/uL (0.8-4.8); LYMPHOCYTES % (AUTO) 1.6 % (20.5-51.5); MEAN CORPUSCULAR HEMOGLOBIN 30.2 uug (23.8-33.4); MEAN CORPUSCULAR HGB CONC 34 g/dL (32.5-36.3); MEAN CORPUSCULAR VOLUME 89.6 fL (73.0-96.2); MONOCYTES # (AUTO) 0.3 K/uL (0.1-1.30); MONOCYTES % (AUTO) 4.3 % (0.0-11.0); NEUTROPHILS # (AUTO) 6.5 K/uL (1.8-8.9); PLATELET COUNT (AUTO) 54 K/uL (152-348); RED BLOOD CELL COUNT(AUTO) 2.54 MIL/uL (4.06-5.63); RED CELL DISTRIBUTION WIDTH 18.3 % (12.1-16.2)
[2024-10-23 05:19] LABS: DIFFERENTIAL COMMENT 1
[2024-10-23 05:33] LABS: CALCIUM 8.1 mg/dL (8.5-10.1); CARBON DIOXIDE 33 mmol/L (21-32); CHLORIDE 98 mmol/L (98-107); CREATININE 0.7 mg/dL (0.6-1.3); GLUCOSE 87 mg/dL (74-106); POTASSIUM 5.4 mmol/L (3.5-5.1); SODIUM SERUM 134 mmol/L (136-145); UREA NITROGEN, BLOOD 24 mg/dL (7-18)
[2024-10-23 05:55] LABS: MAGNESIUM 1.9 mg/dL (1.8-2.4); PHOSPHOROUS 2.6 mg/dL (2.5-4.9)
[2024-10-23 06:27] LABS: EOSINOPHILS % (MANUAL) 1 % (0-8); LYMPHOCYTES % (MANUAL) 1 % (20-40); METAMYELOCYTES % 2 % (0-1); MONOCYTES % (MANUAL) 3 % (2-10); NEUTROPHILS % (MANUAL) 93 % (42-75); PLATELET ESTIMATE MARKED DECREASED
[2024-10-23 06:28] LABS: ANISOCYTOSIS 1+; HYPOCHROMASIA 1+
[2024-10-23 06:37] LABS: ABG BASE EXCESS 2.6 mmol/L (-2.0-3.0); ABG HCO3 29.7 mmol/L (21.0-28.0); ABG PCO2 61.9 mmHg (35.0-48.0); ABG PH 7.299 (7.350-7.450); ABG PO2 99.8 mmHg (83.0-108.0); ABG SITE LEFT RADIAL; ABG TOTAL HEMOGLOBIN 8.3 G/dL (13.5-17.5); AaDO2 96.8 mmHg; MetHb 0.5 % (0.0-1.5); O2Hb 94.8 % (94.0-98.0); VT, ABG 460 mL
[2024-10-23] MEDS: MEDIHONEY= THERAHONEY 1.5 OZ TUBE TOP SCH (14:30)
[2024-10-24] VITALS (67 sets, daily range): BP systolic 89–138; BP diastolic 49–83; TEMP 97.6–99.8; O2SAT 88–100
[2024-10-24 04:56] LABS: BASOPHILS % (AUTO) 0.1 % (0.0-2.0); EOSINOPHILS # (AUTO) 0.1 K/uL (0.0-0.7); EOSINOPHILS % (AUTO) 1.2 % (0.0-7.0); MONOCYTES # (AUTO) 0.2 K/uL (0.1-1.30); NEUTROPHILS # (AUTO) 7.1 K/uL (1.8-8.9)
[2024-10-24 05:15] LABS: DIFFERENTIAL COMMENT 0; LYMPHOCYTES # (AUTO) 0.3 K/uL (0.8-4.8); LYMPHOCYTES % (AUTO) 3.4 % (20.5-51.5); MEAN CORPUSCULAR HEMOGLOBIN 30.1 uug (23.8-33.4); MEAN CORPUSCULAR HGB CONC 33 g/dL (32.5-36.3); MEAN CORPUSCULAR VOLUME 90.6 fL (73.0-96.2); MONOCYTES % (AUTO) 2.7 % (0.0-11.0); NEUTROPHILS % (AUTO) 92.6 % (38.5-71.5); PLATELET COUNT (AUTO) 55 K/uL (152-348); RED CELL DISTRIBUTION WIDTH 18.7 % (12.1-16.2); WHITE BLOOD COUNT (AUTO) 7.7 K/uL (3.6-10.2)
[2024-10-24 05:18] LABS: CALCIUM 8.2 mg/dL (8.5-10.1); CARBON DIOXIDE 26 mmol/L (21-32); CHLORIDE 97 mmol/L (98-107); CREATININE 0.6 mg/dL (0.6-1.3); GLUCOSE 83 mg/dL (74-106); MAGNESIUM 1.8 mg/dL (1.8-2.4); PHOSPHOROUS 3.4 mg/dL (2.5-4.9); POTASSIUM 5.5 mmol/L (3.5-5.1); SODIUM SERUM 131 mmol/L (136-145); TRIGLYCERIDES 355 MG/DL (30-150); UREA NITROGEN, BLOOD 20 mg/dL (7-18)
[2024-10-24 05:45] LABS: RED BLOOD CELL COUNT(AUTO) 2.31 MIL/uL (4.06-5.63)
[2024-10-24 05:46] LABS: HEMATOCRIT 20.9 % (36.7-47.1); HEMOGLOBIN 6.9 g/dL (12.5-16.3)
[2024-10-24 06:09] LABS: ABG BASE EXCESS -0.8 mmol/L (-2.0-3.0); ABG HCO3 25.8 mmol/L (21.0-28.0); ABG PCO2 55.6 mmHg (35.0-48.0); ABG PH 7.285 (7.350-7.450); ABG PO2 87.1 mmHg (83.0-108.0); ABG TOTAL HEMOGLOBIN 6.4 G/dL (13.5-17.5); AaDO2 95.4 mmHg; COHb 0.9 % (0.5-1.5); MetHb 0.8 % (0.0-1.5); O2Hb 93.3 % (94.0-98.0); VT, ABG 460 mL
[2024-10-24 06:15] LABS: LYMPHOCYTES % (MANUAL) 1 % (20-40); MONOCYTES % (MANUAL) 1 % (2-10); NEUTROPHILS % (MANUAL) 98 % (42-75); PLATELET ESTIMATE MARKED DECREASED
[2024-10-24 06:16] LABS: ANISOCYTOSIS 2+; HYPOCHROMASIA 1+
[2024-10-24] MEDS: PROTEIN SUPPLEMENT (PROSTAT) 30 ML LIQUID GT SCH (08:19)
[2024-10-24] MEDS: PANTOPRAZOLE SODIUM 40 MG VIAL IV SCH (09:37)
[2024-10-24] MEDS: FUROSEMIDE 40 MG/4 ML VIAL IV ONE (11:22)
[2024-10-24] MEDS: MIDAZOLAM HCL 50 MG in IV NORMAL SALINE 40 ML IV PRN (17:47)
[2024-10-25] VITALS (47 sets, daily range): BP systolic 91–148; BP diastolic 43–92; TEMP 97.8–99; O2SAT 85–100
[2024-10-25 04:52] LABS: BASOPHILS % (AUTO) 0.3 % (0.0-2.0); EOSINOPHILS # (AUTO) 0.1 K/uL (0.0-0.7); LYMPHOCYTES # (AUTO) 0.4 K/uL (0.8-4.8); LYMPHOCYTES % (AUTO) 6.9 % (20.5-51.5); MEAN CORPUSCULAR HEMOGLOBIN 30.8 uug (23.8-33.4); MEAN CORPUSCULAR HGB CONC 34 g/dL (32.5-36.3); MEAN CORPUSCULAR VOLUME 90.2 fL (73.0-96.2); MONOCYTES # (AUTO) 0.2 K/uL (0.1-1.30); MONOCYTES % (AUTO) 3.1 % (0.0-11.0); NEUTROPHILS # (AUTO) 4.7 K/uL (1.8-8.9); NEUTROPHILS % (AUTO) 88.7 % (38.5-71.5); RED CELL DISTRIBUTION WIDTH 18.7 % (12.1-16.2); WHITE BLOOD COUNT (AUTO) 5.3 K/uL (3.6-10.2)
[2024-10-25 05:04] LABS: DIFFERENTIAL COMMENT 1; RED BLOOD CELL COUNT(AUTO) 1.81 MIL/uL (4.06-5.63)
[2024-10-25 05:07] LABS: HEMATOCRIT 16.3 % (36.7-47.1); HEMOGLOBIN 5.6 g/dL (12.5-16.3); PLATELET COUNT (AUTO) 43 K/uL (152-348)
[2024-10-25 05:12] LABS: CREATININE 0.8 mg/dL (0.6-1.3); MAGNESIUM 1.7 mg/dL (1.8-2.4); PHOSPHOROUS 2.9 mg/dL (2.5-4.9); POTASSIUM 5.5 mmol/L (3.5-5.1)
[2024-10-25 05:53] LABS: ABG BASE EXCESS 5.6 mmol/L (-2.0-3.0); ABG HCO3 31.6 mmol/L (21.0-28.0); ABG PCO2 57.7 mmHg (35.0-48.0); ABG PH 7.356 (7.350-7.450); ABG PO2 137.7 mmHg (83.0-108.0); ABG SITE LEFT RADIAL; ABG TOTAL HEMOGLOBIN 5.8 G/dL (13.5-17.5); AaDO2 98.6 mmHg; COHb 1.6 % (0.5-1.5); MetHb 0.3 % (0.0-1.5); O2Hb 97.1 % (94.0-98.0); VT, ABG 460 mL
[2024-10-25 06:38] LABS: ANISOCYTOSIS 2+; HYPOCHROMASIA 2+; LYMPHOCYTES % (MANUAL) 4 % (20-40); MONOCYTES % (MANUAL) 4 % (2-10); NEUTROPHILS % (MANUAL) 92 % (42-75); PLATELET ESTIMATE DECREASED
[2024-10-25 06:39] LABS: OVALOCYTES 1+
[2024-10-25] MEDS: predniSONE 20 MG TABLET PO SCH (08:33)
[2024-10-25] MEDS: MAGNESIUM SULFATE/D5W 100 ML IV SCH (11:48)
[2024-10-25] MEDS: NUTRISOURCE FIBER 4 GM PACKET GT SCH (17:04)
[2024-10-26] VITALS (83 sets, daily range): BP systolic 69–148; BP diastolic 28–85; TEMP 97–100; O2SAT 60–99
[2024-10-26 05:13] LABS: BASOPHILS % (AUTO) 0.2 % (0.0-2.0); EOSINOPHILS % (AUTO) 0.6 % (0.0-7.0); LYMPHOCYTES # (AUTO) 0.2 K/uL (0.8-4.8); LYMPHOCYTES % (AUTO) 2.3 % (20.5-51.5); MEAN CORPUSCULAR HEMOGLOBIN 32.3 uug (23.8-33.4); MEAN CORPUSCULAR HGB CONC 36 g/dL (32.5-36.3); MEAN CORPUSCULAR VOLUME 90.1 fL (73.0-96.2); MONOCYTES # (AUTO) 0.3 K/uL (0.1-1.30); MONOCYTES % (AUTO) 3.9 % (0.0-11.0); NEUTROPHILS # (AUTO) 6.6 K/uL (1.8-8.9); RED BLOOD CELL COUNT(AUTO) 2.14 MIL/uL (4.06-5.63); RED CELL DISTRIBUTION WIDTH 16.4 % (12.1-16.2); WHITE BLOOD COUNT (AUTO) 7.1 K/uL (3.6-10.2)
[2024-10-26 05:14] LABS: DIFFERENTIAL COMMENT 1; PLATELET COUNT (AUTO) 40 K/uL (152-348)
[2024-10-26 05:15] LABS: HEMATOCRIT 19.3 % (36.7-47.1); HEMOGLOBIN 6.9 g/dL (12.5-16.3)
[2024-10-26 05:27] LABS: CALCIUM 7.9 mg/dL (8.5-10.1); CARBON DIOXIDE 31 mmol/L (21-32); CHLORIDE 91 mmol/L (98-107); CREATININE 0.7 mg/dL (0.6-1.3); GLUCOSE 87 mg/dL (74-106); MAGNESIUM 1.8 mg/dL (1.8-2.4); PHOSPHOROUS 2.5 mg/dL (2.5-4.9); POTASSIUM 5.6 mmol/L (3.5-5.1); SODIUM SERUM 126 mmol/L (136-145); UREA NITROGEN, BLOOD 34 mg/dL (7-18)
[2024-10-26 05:50] LABS: ABG BASE EXCESS 0.6 mmol/L (-2.0-3.0); ABG HCO3 28.4 mmol/L (21.0-28.0); ABG PCO2 68.7 mmHg (35.0-48.0); ABG PH 7.234 (7.350-7.450); ABG PO2 75.6 mmHg (83.0-108.0); ABG SITE LEFT RADIAL; AaDO2 92.1 mmHg; MetHb 0.9 % (0.0-1.5); O2Hb 91.2 % (94.0-98.0); VT, ABG 460 mL
[2024-10-26 06:13] LABS: BAND % (MANUAL) 2 % (0-10); EOSINOPHILS % (MANUAL) 1 % (0-8); LYMPHOCYTES % (MANUAL) 3 % (20-40); MONOCYTES % (MANUAL) 5 % (2-10); MYELOCYTES % 1 % (0-0); NEUTROPHILS % (MANUAL) 87 % (42-75); PLATELET ESTIMATE DECREASED
[2024-10-26 06:14] LABS: ANISOCYTOSIS 1+
[2024-10-26] MEDS: SODIUM ZIRCONIUM CYCLOSILICATE 10 GM POWD.PACK NG SCH (09:00)
[2024-10-26 12:14] LABS: HEMOGLOBIN 7.5 g/dL (12.5-16.3)
[2024-10-26 12:15] LABS: HEMATOCRIT 20.8 % (36.7-47.1)
[2024-10-26] MEDS: IPRATROPIUM BROMIDE 0.5 MG/2.5 ML NEBU NEB SCH (21:29)
[2024-10-26] MEDS: LEVALBUTEROL HCL NEB 0.63 MG/3 ML NEBU NEB SCH (21:29)
[2024-10-26] MEDS: MIDAZOLAM HCL 50 MG in IV NORMAL SALINE 40 ML IV PRN (23:06)
[2024-10-27] VITALS (20 sets, daily range): BP systolic 51–128; BP diastolic 30–65; TEMP 98.4–98.5; O2SAT 51–71
[2024-10-27] MEDS ORDERED: PHENYLEPHRINE 10 MG/1 ML VIAL ONE ×2 (00:05→03:45)
[2024-10-27] MEDS: PHENYLEPHRINE IV 50 MG in IV NORMAL SALINE 245 ML IV PRN (00:17)
[2024-10-27] MEDS ORDERED: EPINEPHRINE 1:10,000 1 MG/10 ML DISP.SYRIN ONE (04:30)
[2024-10-27 05:10] LABS: BASOPHILS # (AUTO) 0.1 K/UL (0.0-0.2); EOSINOPHILS # (AUTO) 0.1 K/uL (0.0-0.7)
[2024-10-27 05:12] LABS: BASOPHILS % (AUTO) 0.5 % (0.0-2.0); EOSINOPHILS % (AUTO) 0.6 % (0.0-7.0); HEMATOCRIT 21.1 % (36.7-47.1); LYMPHOCYTES % (AUTO) 5.3 % (20.5-51.5); MEAN CORPUSCULAR HEMOGLOBIN 32.4 uug (23.8-33.4); MEAN CORPUSCULAR HGB CONC 35 g/dL (32.5-36.3); MEAN CORPUSCULAR VOLUME 92.3 fL (73.0-96.2); MONOCYTES # (AUTO) 0.5 K/uL (0.1-1.30); MONOCYTES % (AUTO) 2.9 % (0.0-11.0); NEUTROPHILS # (AUTO) 16.6 K/uL (1.8-8.9); NEUTROPHILS % (AUTO) 90.7 % (38.5-71.5); RED CELL DISTRIBUTION WIDTH 16.7 % (12.1-16.2); WHITE BLOOD COUNT (AUTO) 18.3 K/uL (3.6-10.2)
[2024-10-27] MEDS ORDERED: CALCIUM CHLORIDE 1 GM/10 ML DISP.SYRIN IVP ONE (05:32)
[2024-10-27 05:38] LABS: BILIRUBIN,DIRECT 2.1 mg/dL (0.0-0.2); BILIRUBIN,TOTAL 2.3 mg/dL (0.2-1.0); CALCIUM 7.4 mg/dL (8.5-10.1); CREATININE 1.6 mg/dL (0.6-1.3); MAGNESIUM 1.8 mg/dL (1.8-2.4); PHOSPHOROUS 4.6 mg/dL (2.5-4.9); POTASSIUM 5.5 mmol/L (3.5-5.1); TOTAL PROTEIN, SERUM 5.1 g/dL (6.4-8.2)
[2024-10-27 05:47] LABS: ALBUMIN 1.3 g/dL (3.4-5.0)
[2024-10-27 05:48] LABS: HEMOGLOBIN 7.4 g/dL (12.5-16.3); RED BLOOD CELL COUNT(AUTO) 2.29 MIL/uL (4.06-5.63)
[2024-10-27 05:49] LABS: DIFFERENTIAL COMMENT 1; PLATELET COUNT (AUTO) 43 K/uL (152-348)
[2024-10-27] MEDS ORDERED: NOREPINEPHRINE BITARTRATE 32 MG in IV NORMAL SALINE 218 ML IV PRN (08:00)
[2024-10-27] MEDS ORDERED: PHENYLEPHRINE IV 100 MG in IV NORMAL SALINE 240 ML IV PRN (08:00)
[2024-10-27] MEDS ORDERED: MIDAZOLAM HCL 50 MG in IV NORMAL SALINE 40 ML IV PRN (08:00)
== END 2024-10-27 05:45 | DRG 720 ==
LOC: ER 22:00 → TRANSITION 10-07 07:22 → TELE-TD3 10-09 06:02 → CCU 10-12 11:00
PROVIDERS: ADMIT Nurse Practitioner Acute Care; ATTEND Nurse Practitioner Acute Care
PROC: 02HV33Z Insertion of Infusion Device into Superior Vena Cava, Percutaneous Approach (ICD-10-PCS; principal; 2024-10-09)
PROC: 0BH17EZ Insertion of Endotracheal Airway into Trachea, Via Natural or Artificial Opening (ICD-10-PCS; 2024-10-12)
PROC: 5A1955Z Respiratory Ventilation, Greater than 96 Consecutive Hours (ICD-10-PCS; 2024-10-12)
PROC: 30233N1 Transfusion of Nonautologous Red Blood Cells into Peripheral Vein, Percutaneous Approach (ICD-10-PCS; 2024-10-15)
PROC: 0W9930Z Drainage of Right Pleural Cavity with Drainage Device, Percutaneous Approach (ICD-10-PCS; 2024-10-21)
PROC: 5A12012 Performance of Cardiac Output, Single, Manual (ICD-10-PCS; 2024-10-27)
DX: A41.9 Sepsis, unspecified organism (principal); J80 Acute respiratory distress syndrome; N17.0 Acute kidney failure with tubular necrosis; R65.21 Severe sepsis with septic shock; E43 Unspecified severe protein-calorie malnutrition; G93.41 Metabolic encephalopathy; R64 Cachexia; D63.8 Anemia in other chronic diseases classified elsewhere; D69.6 Thrombocytopenia, unspecified; E83.39 Other disorders of phosphorus metabolism; E87.1 Hypo-osmolality and hyponatremia; J18.9 Pneumonia, unspecified organism; J12.9 Viral pneumonia, unspecified; E87.20 Acidosis, unspecified; A41.89 Other specified sepsis; N17.9 Acute kidney failure, unspecified; S30.0XXA Contusion of lower back and pelvis, initial encounter; X58.XXXA Exposure to other specified factors, initial encounter; Y92.230 Patient room in hospital as the place of occurrence of the external cause; T37.5X6A Underdosing of antiviral drugs, initial encounter; Z91.148 Patient's other noncompliance with medication regimen for other reason; Y92.89 Other specified places as the place of occurrence of the external cause; E86.0 Dehydration; J93.83 Other pneumothorax; E87.0 Hyperosmolality and hypernatremia; E87.6 Hypokalemia; E87.5 Hyperkalemia; E88.09 Other disorders of plasma-protein metabolism, not elsewhere classified; L89.611 Pressure ulcer of right heel, stage 1; M89.8X9 Other specified disorders of bone, unspecified site; R13.10 Dysphagia, unspecified; S80.822A Blister (nonthermal), left lower leg, initial encounter; S80.821A Blister (nonthermal), right lower leg, initial encounter; T36.8X5A Adverse effect of other systemic antibiotics, initial encounter
CPT/HCPCS: 36415; 36569; 36600; 71045; 71275; 82803; 83605; 83615; 83735; 84100; 84132; 84133; 84300; 84478; 84484; 85018; 85025; 85651; 85730; 86140; 86361; 86480; 86606; 86850; 86900; 86901; 86920; 87040; 87536; 87806; 93005; 93307; 94002; 94003; 94640; 94664; 94760; A4606; A4663; A6209; G0378; J0171; J0692; J1450; J1650; J1720; J1940; J2185; J2250; J2405; J2470; J2765; J3010; J3370; J3465; J3475; J3480; J3490; J3590; J7040; J7050; J7060; J7120; J7512; J7614; J8499; P9016; Q9967